=== PATIENT | male | born 1965 | race Caucasian/White ===

== ENCOUNTER 2020-07-20 16:20 | Outpatient (REF) | payer OTHER, SELFPAY ==
[2020-07-20 19:28] LABS: Anion Gap 9.8 mmol/L (3-11); BUN 22 mg/dL (7-18); CO2 27.2 mmol/L (21.0-32.0); CREATININE 0.9 mg/dL (0.70-1.30); Calcium 9.1 mg/dL (8.5-10.1); Calculated LDL 135 mg/dL (<100); Chloride 104 mmol/L (98-107); Cholesterol 210 mg/dL (<200); Glucose 99 mg/dL (74-106); HDL Cholesterol 57 mg/dL (40-60); Potassium 4.2 mmol/L (3.5-5.1); Sodium 141 mmol/L (136-145); Triglyceride 94 mg/dL (<150)
== END 2020-07-20 16:21 | disposition home or self-care (01) ==
LOC: NCHCN 16:20
PROVIDERS: Visit Provider Internal Medicine
DX: Z00.00 Encounter for general adult medical examination without abnormal findings (principal); Z13.220 Encounter for screening for lipoid disorders; Z13.228 Encounter for screening for other metabolic disorders
CPT/HCPCS: 80048; 80061

== ENCOUNTER 2024-01-15 20:16 | Outpatient (REF) | payer OTHER, SELFPAY ==
[2024-01-15 20:02] LABS: Calculated LDL 107 mg/dL (<100); Cholesterol 212 mg/dL (<200); Glucose 108 mg/dL (74-106); HDL Cholesterol 51 mg/dL (40-60); Triglyceride 274 mg/dL (<150)
== END 2024-01-15 20:17 | disposition home or self-care (01) ==
LOC: NCHCN 20:16
PROVIDERS: Visit Provider Internal Medicine
DX: Z82.49 Family history of ischemic heart disease and other diseases of the circulatory system (principal)
CPT/HCPCS: 80061; 82947